=== PATIENT | male | born 1955 | race African-American/Black ===

== ENCOUNTER 2016-06-18 20:02 | Inpatient (IN) | payer OTHER, MEDICARE ==
[~2016-06-18] VITALS: Ht 182.9 cm; Wt 97.1 kg
[~2016-06-18 20:02] MED LIST: METF500 PO; PRIN5TAB PO; ROBA750T3 PO
[2016-06-18 20:15] VITALS: BP 148/83; PULSE 110; RESP 18; TEMP 98.1; O2SAT 96
[2016-06-18 20:52] VITALS: O2SAT 96
[2016-06-18 20:53] VITALS: BP 120/79; PULSE 98; RESP 20; TEMP 98.2; O2SAT 96
[2016-06-18] MEDS ORDERED: MORPHINE SULFATE 4 MG/ML INJ IV PUSH ONE ×2 (21:00→23:30)
[2016-06-18] MEDS ORDERED: LORazepam 2 MG/ML VIAL IV PUSH ONE (21:00)
[2016-06-18] MEDS ORDERED: ASPIRIN 81 MG CHEW TAB PO ONE (21:00)
[2016-06-18] MEDS ORDERED: SODIUM CHLORIDE 0.9% FLUSH 5 ML FLUSH IVF PRN (21:00)
[2016-06-18] MEDS ORDERED: SODIUM CHLORID 0.9% 500 ML INJ 500 ML IV ONE (21:00)
--- NOTE | 2016-06-18 21:05 | PD ---
HPI Chief Complaint: Chest Pain Time Seen by Provider: 20:52 Travel History International Travel<30 days: No Contact w/Intl Traveler<30days: No Traveled to known affect area: No History of Present Illness HPI 61-year-old male came to the emergency room with history of chest pain and shortness of breath starting today. Patient has been abusing cocaine 2-3 times a week for past couple months. He also uses alcohol with it. Patient is a and says he has history of PTSD. He was tachycardic in the emergency room triage with his heart rate in 100s. He complains of chest pain 5 to 6 out of 10 substernal and dull in nature. No history of nausea, diaphoresis or shortness of breath. Patient has history of stent 2 years ago. He is currently a smoker as well. [facility] Past Medical History Narrative Medical List of his past medical history as reviewed from the nursing note. Anemia: Yes Cirrhosis: No Cerebrovascular Accident: No Coronary Artery Disease: Yes Diabetes: Yes Patient Takes Glucophage: Yes Diminished Hearing: No Hepatitis: Yes (C) Hypertension: Yes Myocardial Infarction: No Seizures: No Ulcer: No ?: Not Past Surgical History Cholecystectomy: Yes Coronary Stent: Yes (x2) Social History Alcohol Use: Yes (RARELY) Tobacco Use: Yes (5 CIGS/DAY) Substance Use: Yes (CRACK COCAINE) Allergies-Medications (Allergen,Severity, Reaction): Coded Allergies: No Known Allergies (Unverified , 01/02/15) Comments No known drug allergies. Reported Meds & Prescriptions Reported Meds & Active Scripts Active Narrative Medication List of his home medications reviewed from the nursing note. Review of Systems Except as stated in HPI: all other systems reviewed are Neg Physical Exam Narrative GENERAL: Awake, alert, moderate distress SKIN: Warm and dry. HEAD: Atraumatic. Normocephalic. EYES: Pupils equal and round. No scleral icterus. No injection or drainage. Arcus senilis ENT: No nasal bleeding or discharge. Mucous membranes pink and moist. NECK: Trachea midline. No JVD. CARDIOVASCULAR: Regular rate and rhythm. Tachycardia. No murmur appreciated. RESPIRATORY: No accessory muscle use. Clear to auscultation. Breath sounds equal bilaterally. GASTROINTESTINAL: Abdomen soft, non-tender, nondistended. Hepatic and splenic margins not palpable. MUSCULOSKELETAL: No obvious deformities. No clubbing. No cyanosis. No edema. NEUROLOGICAL: Awake and alert. No obvious cranial nerve deficits. Motor grossly within normal limits. Normal speech. PSYCHIATRIC: Appropriate mood and affect; insight and judgment normal. Data Data Last Documented VS Vital Signs Date Time Temp Pulse Resp B/P Pulse Ox O2 Delivery O2 Flow Rate FiO2 06/18/16 23:00 83 20 151/83 99 Room Air 06/18/16 20:53 98.2 Orders Electrocardiogram (06/18/16 20:46) Basic Metabolic Panel (Bmp) (06/18/16 20:46) Ckmb (Isoenzyme) Profile (06/18/16 20:46) Complete Blood Count With Diff (06/18/16 20:46) Magnesium (Mg) (06/18/16 20:46) Prothrombin Time / Inr (Pt) (06/18/16 20:46) Act Partial Throm Time (Ptt) (06/18/16 20:46) Troponin I (06/18/16 20:46) Chest, Single Ap (06/18/16 20:46) Ecg Monitoring (06/18/16 20:46) Bilateral Bp Monitoring (06/18/16 20:46) Iv Access Insert/Monitor (06/18/16 20:46) Oximetry (06/18/16 20:46) Oxygen Administration (06/18/16 20:46) Aspirin Chew (Aspirin Chew) (06/18/16 21:00) Morphine Inj (Morphine Inj) (06/18/16 21:00) Sodium Chlorid 0.9% 500 Ml Inj (Ns 500 M (06/18/16 21:00) Lorazepam Inj (Ativan Inj) (06/18/16 21:00) CKMB (06/18/16 22:05) CKMB% (06/18/16 22:05) Heparin Infusion LEXIE.Q1H (06/18/16 23:26) Heparin Inj (Heparin Inj) (06/18/16 23:30) Heparin-D5w Inj (Heparin-D5w Inj) (06/18/16 23:30) Cbc No Diff, Includes Plts (06/21/16 06:00) Act Partial Throm Time (Ptt) (06/19/16 06:26) Occult Blood (Hemoccult) Stool (06/18/16 23:26) Morphine Inj (Morphine Inj) (06/18/16 23:30) Place In Observation (06/18/16 ) Vital Signs (Adult) Q4H (06/18/16 23:44) Activity Oob With Assistance (06/18/16 23:44) ^ [employer] / Telemetry .CONTINUOUS (06/18/16 23:44) Sodium Chloride 0.9% Flush (Ns Flush) (06/18/16 23:45) Sodium Chloride 0.9% Flush (Ns Flush) (06/19/16 09:00) Complete Blood Count With Diff (06/19/16 06:00) Creatine Kinase (Cpk) (06/19/16 04:00) Creatine Kinase (Cpk) (06/19/16 10:00) Troponin I (06/19/16 04:00) Troponin I (06/19/16 10:00) Electrocardiogram (06/19/16 04:00) Electrocardiogram (06/19/16 10:00) Naloxone Inj (Narcan Inj) (06/18/16 23:45) Admit Order (Ed Use Only) (06/18/16 23:45) Enoxaparin Inj (Lovenox Inj) (06/19/16 00:00) Basic Metabolic Panel (Bmp) (06/19/16 04:00) CKMB (06/19/16 04:20) CKMB% (06/19/16 04:20) Labs Laboratory Tests Test 06/18/16 22:05 White Blood Count 9.2 TH/MM3 Red Blood Count 4.87 MIL/MM3 Hemoglobin 14.2 GM/DL Hematocrit 42.4 % Mean Corpuscular Volume 87.1 FL Mean Corpuscular Hemoglobin 29.1 PG Mean Corpuscular Hemoglobin 33.4 % Concent Red Cell Distribution Width 13.6 % Platelet Count 288 TH/MM3 Mean Platelet Volume 8.3 FL Neutrophils (%) (Auto) 76.3 % Lymphocytes (%) (Auto) 18.2 % Monocytes (%) (Auto) 4.5 % Eosinophils (%) (Auto) 0.2 % Basophils (%) (Auto) 0.8 % Neutrophils # (Auto) 7.0 TH/MM3 Lymphocytes # (Auto) 1.7 TH/MM3 Monocytes # (Auto) 0.4 TH/MM3 Eosinophils # (Auto) 0.0 TH/MM3 Basophils # (Auto) 0.1 TH/MM3 CBC Comment DIFF FINAL Differential Comment Prothrombin Time 11.4 SEC Prothromb Time International 1.0 RATIO Ratio Activated Partial 25.1 SEC Thromboplast Time Sodium Level 142 MEQ/L Potassium Level 3.6 MEQ/L Chloride Level 105 MEQ/L Carbon Dioxide Level 18.8 MEQ/L Anion Gap 18 MEQ/L Blood Urea Nitrogen 14 MG/DL Creatinine 1.37 MG/DL Estimat Glomerular Filtration 64 ML/MIN Rate Random Glucose 135 MG/DL Calcium Level 9.5 MG/DL Magnesium Level 1.4 MG/DL Total Creatine Kinase 443 U/L Creatine Kinase MB 7.3 NG/ML Creatine Kinase MB % 1.6 % Troponin I 0.08 NG/ML MDM Medical Decision Making Medical Screen Exam Complete: Yes Emergency Medical Condition: Yes Medical Record Reviewed: Yes Interpretation(s) Twelve-lead EKG was reviewed by me. Normal sinus rhythm, left axis deviation, tachycardia, PVCs, nonspecific ST-T wave changes. Heart rate of 102 bpm. Differential Diagnosis ACS, non-STEMI couple, cocaine induced chest pain, nonspecific chest pain Narrative Course 9:05 PM awaiting for the blood test result. Patient has been given IV Ativan, morphine and 2 baby aspirin's. He will require to be admitted at least for observation if all the test results are within normal limit given his significantly high risk factors. 11:25 PM the test results of back and patient's troponin is elevated. He will be admitted to the hospitalist to be seen by clin asst tomorrow. Patient has been informed of this plan. Critical Care Narrative Aggregate critical care time was 30 minutes. Time to perform other separately billable procedures was not included in the critical care time. My time did not include minutes spent treating any other patients simultaneously or on activities that did not directly contribute to the patient's treatment. The services I provided to this patient were to treat and/or prevent clinically significant deterioration that could result in: Non-STEMI, heparin bolus and drip I provided critical care services requiring my management, as noted below: Chart data review, documentation time, medication orders and management, vital sign assessments/reviewing monitor data, ordering and reviewing lab tests, ordering and interpreting/reviewing x-rays and diagnostic studies, care of the patient and discussion of the patient with the admitting physicians. Procedures EKG Prior to Arrival: Yes Diagnosis Primary Impression: Non-STEMI (non-ST elevated myocardial infarction) Additional Impression: Cocaine abuse Admitting Information Admitting Physician Requests: Admit Scripts [Aspirin] (Aspirin Chew)81 MG CHEW No Conflict Check81 Mg PO DAILY #30 TAB.CHEW Prov:Judit Simmons MD 06/20/16 Ashly Jones MD Jun 18, 2016 21:05
--- NOTE | 2016-06-18 21:38 | RADRPT ---
EXAM DATE/TIME: 06/18/2016 20:58 [facility] COMPARISON: No previous studies available for comparison. INDICATIONS : Chest pain. MEDICAL HISTORY : None. SURGICAL HISTORY : Cardiac stent. ENCOUNTER: Initial ACUITY: 1 day PAIN SCORE: 5/10 LOCATION: Bilateral chest FINDINGS: A single view of the chest demonstrates the lungs to be symmetrically aerated without evidence of mas s, infiltrate or effusion. The cardiomediastinal contours are unremarkable. Osseous structures are intact. CONCLUSION: No acute disease. Kings Garcia MD on June 18, 2016 at 21:36 Board Certified Radiologist. This report was verified electronically.
[2016-06-18 22:00] VITALS: BP 150/87; PULSE 88; RESP 20; O2SAT 97
[2016-06-18 22:43] LABS: BASOPHIL # 0.1 TH/MM3 (0-0.2); BASOPHIL % 0.8 % (0.0-2.0); EOSINOPHIL % 0.2 % (0.0-4.0); HEMATOCRIT 42.4 % (39.0-51.0); HEMO FLAGS DIFF FINAL; LYMPH % 18.2 % (9.0-44.0); LYMPHOCYTE # 1.7 TH/MM3 (1.0-4.8); MEAN CELL VOLUME 87.1 FL (80.0-100.0); MEAN CORPUSCULAR HEMOGLOBIN 29.1 PG (27.0-34.0); MEAN CORPUSCULAR HGB CONC 33.4 % (32.0-36.0); MONO % 4.5 % (0.0-8.0); NEUT % 76.3 % (16.0-70.0); PLATELET COUNT 288 TH/MM3 (150-450); RED BLOOD COUNT 4.87 MIL/MM3 (4.50-5.90); RED CELL DISTRIBUTION WIDTH 13.6 % (11.6-17.2); WHITE BLOOD COUNT 9.2 TH/MM3 (4.0-11.0)
[2016-06-18 22:52] LABS: APTT (PATIENT) 25.1 SEC (24.3-30.1); PROTHROMBIN TIME - PATIENT 11.4 SEC (9.8-11.6)
[2016-06-18 23:00] VITALS: BP 151/83; PULSE 83; RESP 20; O2SAT 99
[2016-06-18 23:12] LABS: BICARBONATE 18.8 MEQ/L (21.0-32.0); MAGNESIUM 1.4 MG/DL (1.5-2.5); POTASSIUM 3.6 MEQ/L (3.5-5.1)
[2016-06-18 23:13] LABS: CKMB 7.3 NG/ML (0.5-3.6)
[2016-06-18] MEDS ORDERED: HEPARIN-D5W INJ 250 ML IV SCH (23:30)
[2016-06-18] MEDS ORDERED: HEPARIN SODIUM - IV 10,000 UNITS/10 ML VIAL IV ONE (23:30)
[2016-06-18] MEDS ORDERED: SODIUM CHLORIDE 0.9% FLUSH 5 ML FLUSH FLUSH PRN (23:45)
[2016-06-18] MEDS ORDERED: NALOXONE HCL 0.4 MG/ML AMP IV PRN (23:45)
[2016-06-19] VITALS (13 sets, daily range): BP systolic 116–154; BP diastolic 66–91; PULSE 62–104; RESP 15–20; TEMP 97.9–98.6; O2SAT 96–100
[2016-06-19] MEDS ORDERED: ENOXAPARIN SODIUM 100 MG/ML SYRINGE SQ ONE
[2016-06-19 05:19] LABS: BICARBONATE 23.8 MEQ/L (21.0-32.0); POTASSIUM 3.7 MEQ/L (3.5-5.1)
[2016-06-19 05:31] LABS: AUTOMATED NEUTROPHIL # 5.5 TH/MM3 (1.8-7.7); BASOPHIL % 0.4 % (0.0-2.0); EOSINOPHIL # 0.2 TH/MM3 (0-0.4); EOSINOPHIL % 2.5 % (0.0-4.0); HEMATOCRIT 41.4 % (39.0-51.0); HEMO FLAGS DIFF FINAL; LYMPH % 32.3 % (9.0-44.0); MEAN CELL VOLUME 84.6 FL (80.0-100.0); MEAN CORPUSCULAR HEMOGLOBIN 28.3 PG (27.0-34.0); MEAN CORPUSCULAR HGB CONC 33.4 % (32.0-36.0); MONO % 7.1 % (0.0-8.0); NEUT % 57.7 % (16.0-70.0); PLATELET COUNT 271 TH/MM3 (150-450); RED BLOOD COUNT 4.89 MIL/MM3 (4.50-5.90); RED CELL DISTRIBUTION WIDTH 13.8 % (11.6-17.2); WHITE BLOOD COUNT 9.4 TH/MM3 (4.0-11.0)
[2016-06-19 05:39] LABS: CKMB 6.8 NG/ML (0.5-3.6)
[2016-06-19] MEDS: MAGNESIUM SULFATE 1 GM PREMIX 100 ML IV SCH ×2 (05:39→07:29)
[2016-06-19 05:41] LABS: APTT (PATIENT) 29.9 SEC (24.3-30.1)
[2016-06-19] MEDS: SODIUM CHLORIDE 0.9% FLUSH 5 ML FLUSH FLUSH SCH ×2 (09:26→21:09)
[2016-06-19] MEDS ORDERED: LORazepam 2 MG/ML VIAL IV PUSH PRN ×4 (10:30)
[2016-06-19] MEDS ORDERED: LORazepam 1 MG TAB PO PRN (10:30)
[2016-06-19] MEDS ORDERED: FLUMAZENIL 1 MG/10 ML VIAL IV PUSH PRN (10:30)
[2016-06-19] MEDS ORDERED: ASPIRIN 325 MG TAB PO SCH (10:30)
[2016-06-19] MEDS ORDERED: LORazepam 2 MG TAB PO PRN (10:30)
[2016-06-19] MEDS: FOLIC ACID 1 MG TAB PO SCH (11:03)
[2016-06-19] MEDS: THIAMINE HCL 100 MG TAB PO SCH (11:03)
[2016-06-19] MEDS: MORPHINE SULFATE 4 MG/ML INJ IV PUSH PRN ×3 (11:04→23:17)
--- NOTE | 2016-06-19 11:06 | EKG ---
Date Performed: 06/19/2016 Time Performed: 04:37:48 PTAGE: 61 years EKG: Sinus rhythm WITH SINUS ARRHYTHMIA POSSIBLE LEFT ATRIAL ENLARGEMENT INFERIOR MYOCARDIAL INFARCTION MODERATE T-WAV E ABNORMALITY, CONSIDER ANTEROLATERAL ISCHEMIA ABNORMAL ECG PREVIOUS TRACING : 06/18/2016 20.32 DOCTOR: Sarwat Larry Interpretating Date/Time 06/19/2016 11:06:18
[2016-06-19 11:17] LABS: HEMATOCRIT 41.6 % (39.0-51.0); MEAN CELL VOLUME 84.9 FL (80.0-100.0); MEAN CORPUSCULAR HEMOGLOBIN 28.6 PG (27.0-34.0); MEAN CORPUSCULAR HGB CONC 33.7 % (32.0-36.0); PLATELET COUNT 295 TH/MM3 (150-450); RED CELL DISTRIBUTION WIDTH 13.8 % (11.6-17.2); REVIEW FLAG FINAL; WHITE BLOOD COUNT 8.4 TH/MM3 (4.0-11.0)
[2016-06-19 11:25] LABS: APTT (PATIENT) 26.8 SEC (24.3-30.1); PROTHROMBIN TIME - PATIENT 10.8 SEC (9.8-11.6)
[2016-06-19] MEDS: HEPARIN-D5W INJ 250 ML IV SCH (12:18)
--- NOTE | 2016-06-19 12:22 | EKG ---
Date Performed: 06/19/2016 Time Performed: 10:14:19 PTAGE: 61 years EKG: Sinus rhythm WITH SINUS ARRHYTHMIA POSSIBLE LEFT ATRIAL ENLARGEMENT INFERIOR MYOCARDIAL INFARCTION MODERATE T-WAV E ABNORMALITY, CONSIDER LATERAL ISCHEMIA ABNORMAL ECG PREVIOUS TRACING : 06/19/2016 04.37 DOCTOR: Sarwat Larry Interpretating Date/Time 06/19/2016 12:20:13
[2016-06-19] MEDS ORDERED: CLOPIDOGREL 300 MG TAB PO ONE (13:00)
--- NOTE | 2016-06-19 13:15 | HHI.HP ---
[facility] Service [place] [facility] Primary Care Physician Non-Staff Admission Diagnosis chest pain, elevated troponin Diagnoses: Chief Complaint: Chest pain Travel History International Travel<30 Days: No Contact w/Intl Traveler <30 Da: No Traveled to Known Affected Are: No History of Present Illness 61 years old male with history of coronary artery disease and heart stenting, hypertension, hyperlipidemia, diabetes mellitus, came to ED complaining of chest pain 6-7 out of 10, along with sweating, short of breath, lightheadedness, patient denied nausea or vomiting, transfer the pain, he did not try nitroglycerin, no transfer or alleviating or exacerbating factor. Patient admitted doing cocaine yesterday. He stated he drinks alcohol daily at least a beer. And he smoked 5 cigarettes a day. Patient denied any abdominal pain, diarrhea or constipation, orthopnea or PND or leg swelling, dysuria urgency or frequency, headache or blurred vision Review of Systems Other All 10 systems reviewed and was positive for what is mentioned in history of present illness otherwise negative Past Family Social History Past Medical History Hyperlipidemia Diabetes mellitus Hypertension History of coronary artery disease status post stenting Hep C PTSD Past Surgical History Cardiac catheter, stenting Allergies: Coded Allergies: No Known Allergies (Unverified , 01/02/15) Family History Reviewed noncontributory Social History Patient smoke 5 cigarettes a day, he does drink alcohol he stated at least a beer a day, positive for cocaine abuse last time yesterday Physical Exam Vital Signs Vital Signs Date Time Temp Pulse Resp B/P Pulse Ox O2 Delivery O2 Flow Rate FiO2 06/19/16 12:21 75 20 154/83 98 Room Air 06/19/16 11:09 20 06/19/16 10:00 70 20 140/91 98 Room Air 06/19/16 07:08 81 20 140/76 98 Room Air 06/19/16 04:00 75 20 143/66 97 Room Air 06/19/16 03:00 104 20 129/79 97 Room Air 06/19/16 02:00 76 20 137/71 97 Room Air 06/19/16 01:00 86 20 139/81 100 Room Air 06/19/16 00:00 78 20 147/88 96 Room Air 06/18/16 23:00 83 20 151/83 99 Room Air 06/18/16 22:00 88 20 150/87 97 Room Air 06/18/16 21:08 18 06/18/16 20:53 Room Air 06/18/16 20:53 98.2 98 20 120/79 96 Room Air 06/18/16 20:52 96 Room Air 06/18/16 20:15 98.1 110 18 148/83 96 Physical Exam GENERAL: This is a well-nourished, well-developed patient, in no apparent distress. SKIN: No rashes, warm and dry HEAD: Atraumatic. Normocephalic. EYES: Pupils equal round and reactive. Extraocular motions intact. No scleral icterus. ENT: Nose without bleeding, or drainage, Airway patent. NECK: Trachea midline. Supple CARDIOVASCULAR: Regular rate and rhythm without murmurs, gallops, or rubs. RESPIRATORY: Fair air entry bilaterally. No wheezes, rales, or rhonchi. GASTROINTESTINAL: Abdomen soft, non-tender, nondistended. Positive bowel sounds MUSCULOSKELETAL: Extremities without clubbing, cyanosis, or edema. Pedal pulses appreciated NEUROLOGICAL: Awake and alert. Moves all extremity. Normal speech.no focal neurological deficit Laboratory Laboratory Tests Test 06/18/16 06/19/16 06/19/16 06/19/16 22:05 04:20 05:09 10:05 White Blood Count 9.2 9.4 Red Blood Count 4.87 4.89 Hemoglobin 14.2 13.8 Hematocrit 42.4 41.4 Mean Corpuscular Volume 87.1 84.6 Mean Corpuscular Hemoglobin 29.1 28.3 Mean Corpuscular Hemoglobin 33.4 33.4 Concent Red Cell Distribution Width 13.6 13.8 Platelet Count 288 271 Mean Platelet Volume 8.3 7.4 Neutrophils (%) (Auto) 76.3 57.7 Lymphocytes (%) (Auto) 18.2 32.3 Monocytes (%) (Auto) 4.5 7.1 Eosinophils (%) (Auto) 0.2 2.5 Basophils (%) (Auto) 0.8 0.4 Neutrophils # (Auto) 7.0 5.5 Lymphocytes # (Auto) 1.7 3.0 Monocytes # (Auto) 0.4 0.7 Eosinophils # (Auto) 0.0 0.2 Basophils # (Auto) 0.1 0.0 CBC Comment DIFF FINAL DIFF FINAL Differential Comment Prothrombin Time 11.4 Prothromb Time International 1.0 Ratio Activated Partial 25.1 29.9 Thromboplast Time Sodium Level 142 144 Potassium Level 3.6 3.7 Chloride Level 105 109 Carbon Dioxide Level 18.8 23.8 Anion Gap 18 11 Blood Urea Nitrogen 14 14 Creatinine 1.37 1.20 Estimat Glomerular Filtration 64 74 Rate Random Glucose 135 83 Calcium Level 9.5 8.8 Magnesium Level 1.4 Total Creatine Kinase 443 355 293 Creatine Kinase MB 7.3 6.8 Creatine Kinase MB % 1.6 1.9 Troponin I 0.08 0.26 0.34 Test 06/19/16 11:10 White Blood Count 8.4 Red Blood Count 4.90 Hemoglobin 14.0 Hematocrit 41.6 Mean Corpuscular Volume 84.9 Mean Corpuscular Hemoglobin 28.6 Mean Corpuscular Hemoglobin 33.7 Concent Red Cell Distribution Width 13.8 Platelet Count 295 Mean Platelet Volume 7.4 Prothrombin Time 10.8 Prothromb Time International 1.0 Ratio Activated Partial 26.8 Thromboplast Time Result Diagram: 06/19/16 1110 06/19/16 0420 Imaging Last Impressions Chest X-Ray 06/18/162045 Signed Impressions: Service Date/Time: Saturday, June 18, 2016 20:58 - CONCLUSION: No acute disease. Kings Garcia MD EKG personally reviewed by me showed sinus rhythm with old inferior infarct, questionable lateral infarct with inverted T-wave in lead I, aVL V5 V6 Assessment and Plan Assessment and Plan 61 years old male came with history of chest pain Non-STEMI, chest pain with increased troponin mostly precipitated I cocaine abuse Increased CK and troponin CAROL with increased creatinine Metabolic acidosis mostly due to CAROL History of coronary artery disease with stenting in the past Substance abuse cocaine patient counseled Tobacco abuse Questionable alcohol abuse Hypertension Hyperlipidemia Diabetes mellitus History of hep C History of PTSD DVT prophylaxis patient will be on heparin drip Plan: Patient evidence for observation to monitor cardiac enzymes which increased Healthy heart diabetic diet Started on aspirin, oxygen, morphine, heparin drip Consult cardiology, I personally called Dr. Honeycutt on discussed with him, decision for heart catheter when they see the patient EKG reviewed by me as above Hold lisinopril due to CAROL Will avoid beta marcel due to recent cocaine use Patient extensively counseled about tobacco 1 cocaine abstinence Accu-Chek, ISS, hold metformin, diabetic education, check A1c. CIWA protocol Discussed Condition With Patient, cardiology Dr. Honeycutt Physician Certification 2 Midnight Certification Type: Admission for Inpatient Services Order for Inpatient Services The services are ordered in accordance with Medicare regulations or non- Medicare payer requirements, as applicable. In the case of services not specified as inpatient-only, they are appropriately provided as inpatient services in accordance with the 2-midnight benchmark. Estimated LOS (days): 2 days is the estimated time the patient will need to remain in the hospital, assuming treatment plan goals are met and no additional complications. Post-Hospital Plan: Not yet determined Judit Simmons MD Jun 19, 2016 13:15
--- NOTE | 2016-06-19 13:33 | MB ---
cc: DALI WINTER M.D. DATE OF CONSULTATION: 06/19/2016 REASON FOR CONSULTATION Evaluation of chest pain and elevated troponin. HISTORY OF PRESENT ILLNESS Reynaldo Ventura is a 61-year-old -[place] man admitted with a non-STEMI. The patient has a longstanding history of cocaine abuse. He uses it about 2-3 times a week. He had a previous infarct 2 years ago. He does not remember if he was hospitalized in [place] or more likely it was in [place]. He apparently had a stent at that time. He also smokes. He has hypertension and diabetes. Yesterday he used crack cocaine and about an hour later developed substernal chest pressure lasting a couple of hours. He has had a little bit of pain also today. He has been receiving intermittent morphine which he says is the only thing that relieves his anxiety. He claims to have severe anxiety from post-traumatic stress disorder. He is collecting Social Security apparently for this. He did not have chest pain before last night. PAST MEDICAL HISTORY 1. Hypertension. 2. Diabetes. 3. Previously treated and cured hepatitis C according to him. 4. Previous cholecystectomy. 5. Sleep apnea with previous uvulopalatopharyngoplasty, but without success and refuses to use CPAP because he cannot tolerate it. SOCIAL HISTORY He lives alone. He served in the [employer] in [place]. He is single. He lived in [place] about a year and a half ago then moved to [place]. Prior to that he lived in [place]. He says he has been in drug rehab too many times to count. PHYSICAL EXAMINATION GENERAL: A robust-appearing -[place]e male, mildly anxious, in no acute distress. VITAL SIGNS: Charted. HEENT: Exam unremarkable. NECK: No JVD. No bruits. CHEST: Clear to auscultation. CARDIAC: S1, S2, S4, regular rate and rhythm. ABDOMEN: Soft. EXTREMITIES: No clubbing, cyanosis or edema. Pulses are intact. EKG DATA EKG shows sinus rhythm. There is evidence for an old inferior infarct. There are anterior and anterolateral ST-T wave abnormalities consistent with a subendocardial infarct. LABORATORY DATA Lab work shows elevation of his troponin at 0.08, 0.25 and then 0.34. Creatinine has gone from 1.37 down to 1.2. Potassium is 3.7. Hematocrit is normal. IMAGING DATA Chest x-ray is unremarkable. IMPRESSION Acute acx-AE-hgktocx elevation myocardial infarction, occurring one hour after crack cocaine use. Longstanding polysubstance abuse. RECOMMENDATIONS I do not think he is a good candidate for cardiac cath because I do not think we could trust him to take dual-antiplatelet therapy properly or to stop using drugs. Currently the drug abuse is longstanding. I am going to try to treat him medically and am going to add nitrates and diltiazem. Will try to avoid a beta marcel in view of his cocaine habit. Will try to hopefully stabilize him with medication. I will add clopidogrel, continue aspirin and add statin therapy. The patient was counseled to quit smoking and quit using cocaine, but I do not have any confidence that he will. A 2-D echo Doppler is ordered. Further therapy to be determined. MD ADRIAN Ayers/NOEL /1:02 PM /1:12 PM
[2016-06-19] MEDS: DILTIAZEM HCL 60 MG TAB PO SCH ×3 (13:48→21:09)
[2016-06-19] MEDS: NITROGLYCERIN 2% OINT 1 GM PACKET TOPICAL SCH ×3 (13:49→23:17)
[2016-06-19] MEDS ORDERED: LISI-519 PO (15:02)
[2016-06-19] MEDS ORDERED: METH750T PO (15:05)
[2016-06-19] MEDS ORDERED: METF500T PO (15:05)
[2016-06-20] VITALS (7 sets, daily range): BP systolic 120–146; BP diastolic 72–82; PULSE 58–67; RESP 16–18; TEMP 97.4–98.4; O2SAT 97–98
[2016-06-20 01:37] LABS: APTT (PATIENT) 43.5 SEC (24.3-30.1)
[2016-06-20] MEDS: MORPHINE SULFATE 4 MG/ML INJ IV PUSH PRN ×5 (03:33→23:15)
[2016-06-20] MEDS: NITROGLYCERIN 2% OINT 1 GM PACKET TOPICAL SCH ×4 (06:42→23:15)
[2016-06-20] MEDS: ATORVASTATIN 40 MG TAB PO SCH (08:05)
[2016-06-20] MEDS: DILTIAZEM HCL 60 MG TAB PO SCH ×4 (08:05→19:56)
[2016-06-20] MEDS: ASPIRIN 81 MG CHEW TAB PO SCH (08:06)
[2016-06-20] MEDS: FOLIC ACID 1 MG TAB PO SCH (08:06)
[2016-06-20] MEDS: SODIUM CHLORIDE 0.9% FLUSH 5 ML FLUSH FLUSH SCH ×2 (08:06→19:56)
[2016-06-20] MEDS: THIAMINE HCL 100 MG TAB PO SCH (08:06)
[2016-06-20] MEDS: CLOPIDOGREL 75 MG TAB PO SCH (08:06)
[2016-06-20] MEDS ORDERED: GLUCAGON 1 MG/ML VIAL OTHER PRN (08:15)
[2016-06-20] MEDS ORDERED: DEXTROSE 50% IN WATER 50 ML VIAL(D50) IV PUSH PRN (08:15)
[2016-06-20 08:39] LABS: HEMATOCRIT 38.2 % (39.0-51.0); MEAN CELL VOLUME 84.9 FL (80.0-100.0); MEAN CORPUSCULAR HGB CONC 32.9 % (32.0-36.0); PLATELET COUNT 247 TH/MM3 (150-450); RED CELL DISTRIBUTION WIDTH 13.9 % (11.6-17.2); REVIEW FLAG FINAL
[2016-06-20] MEDS: LISINOPRIL 5 MG TAB PO SCH (08:43)
[2016-06-20] MEDS ORDERED: PILL SPLITTER OTHER PRN (08:45)
[2016-06-20] MEDS: HEPARIN-D5W INJ 250 ML IV SCH (08:50)
[2016-06-20 08:53] LABS: APTT (PATIENT) 44.8 SEC (24.3-30.1)
--- NOTE | 2016-06-20 09:11 | PD.CARD.PN ---
Subjective Subjective Remarks no angina, no complaints Objective Medications Current Medications Medications (Trade) Dose Ordered Sig/Uriah Route Start Time Stop Time Status Last Admin (NS Flush) 2 ml UNSCH PRN FLUSH 06/18/16 23:45 (NS Flush) 2 ml BID FLUSH 06/19/16 09:00 06/20/16 08:06 Naloxone HCl 0.4 mg 0.4 mg UNSCH PRN IV 06/18/16 23:45 (Heparin-D5W Inj) 250 ml @ 0 mls/hr TITRATE IV 06/19/16 11:30 06/20/16 08:50 (Morphine Inj) 3 mg Q3H PRN IV PUSH 06/19/16 10:30 06/20/16 06:41 (Romazicon Inj) 0.2 mg UNSCH PRN IV PUSH 06/19/16 10:30 06/23/16 10:31 (Ativan) 1 mg Q4H PRN PO 06/19/16 10:30 06/19/16 11:04 (Ativan Inj) 1 mg Q4H PRN IV PUSH 06/19/16 10:30 (Ativan) 2 mg Q2H PRN PO 06/19/16 10:30 (Ativan Inj) 2 mg Q2H PRN IV PUSH 06/19/16 10:30 (Ativan Inj) 2 mg Q1H PRN IV PUSH 06/19/16 10:30 (Ativan Inj) 2 mg Q15M PRN IV PUSH 06/19/16 10:30 (Folate) 1 mg DAILY PO 06/19/16 10:30 06/24/16 10:29 06/20/16 08:06 (Vitamin B1) 100 mg DAILY PO 06/19/16 10:30 06/20/16 08:06 (Aspirin Chew) 81 mg DAILY PO 06/20/16 09:00 06/20/16 08:06 (Nitroglycerin 2% Oint) 1 inch Q6HR TOPICAL 06/19/16 13:00 06/20/16 06:42 (Cardizem) 60 mg QID PO 06/19/16 13:00 06/20/16 08:05 (Plavix) 75 mg DAILY PO 06/20/16 09:00 06/20/16 08:06 (Lipitor) 40 mg DAILY PO 06/20/16 09:00 06/20/16 08:05 (D50w (Vial) Inj) 25 ml UNSCH PRN IV PUSH 06/20/16 08:15 (Glucagon Inj) 1 mg UNSCH PRN OTHER 06/20/16 08:15 (Prinivil) 2.5 mg DAILY PO 06/20/16 09:00 06/20/16 08:43 (Pill Splitter) 1 ea UNSCH PRN OTHER 06/20/16 08:45 Vital Signs / I&O Vital Signs Date Time Temp Pulse Resp B/P Pulse Ox O2 Delivery O2 Flow Rate FiO2 06/20/16 08:00 97.7 62 18 120/77 97 06/20/16 04:00 98.2 67 16 125/74 97 06/20/16 00:00 98.2 64 18 135/77 97 06/19/16 20:15 71 06/19/16 20:15 Room Air 06/19/16 20:00 98.6 69 18 116/79 97 06/19/16 18:46 Room Air 06/19/16 14:23 97.9 71 18 126/72 100 06/19/16 13:47 76 15 143/88 96 Room Air 06/19/16 12:21 75 20 154/83 98 Room Air 06/19/16 11:09 20 06/19/16 10:00 70 20 140/91 98 Room Air I/O 06/19/16 06/19/16 06/19/16 06/20/16 06/20/16 06/20/16 06:59 14:59 22:59 06:59 14:59 22:59 Intake Total 318 ml 298 ml Output Total 400 ml 400 ml Balance -82 ml -102 ml Intake Oral 240 ml 240 ml IV Total 78 ml 58 ml Output Urine Total 400 ml 400 ml # Bowel Movements 0 0 Physical Exam GENERAL: Obese, well developed, well nourished. No acute distress. HEENT: Jugular venous pressure is normal. CHEST: Lungs clear to auscultation bilaterally. Unlabored respiratory effort. CARDIAC: Regular rate and rhythm ABDOMEN: Soft, nontender, Bowel sounds present. EXTREMITIES: No clubbing, cyanosis, or edema. Laboratory Laboratory Tests Test 06/19/16 06/19/16 06/19/16 06/20/16 10:05 11:10 19:00 01:18 Total Creatine Kinase 293 U/L Troponin I 0.34 NG/ML White Blood Count 8.4 TH/MM3 Red Blood Count 4.90 MIL/MM3 Hemoglobin 14.0 GM/DL Hematocrit 41.6 % Mean Corpuscular Volume 84.9 FL Mean Corpuscular Hemoglobin 28.6 PG Mean Corpuscular Hemoglobin 33.7 % Concent Red Cell Distribution Width 13.8 % Platelet Count 295 TH/MM3 Mean Platelet Volume 7.4 FL Prothrombin Time 10.8 SEC Prothromb Time International 1.0 RATIO Ratio Activated Partial 26.8 SEC 39.0 SEC 43.5 SEC Thromboplast Time Test 06/20/16 07:41 White Blood Count 7.0 TH/MM3 Red Blood Count 4.50 MIL/MM3 Hemoglobin 12.6 GM/DL Hematocrit 38.2 % Mean Corpuscular Volume 84.9 FL Mean Corpuscular Hemoglobin 28.0 PG Mean Corpuscular Hemoglobin 32.9 % Concent Red Cell Distribution Width 13.9 % Platelet Count 247 TH/MM3 Mean Platelet Volume 8.0 FL Activated Partial 44.8 SEC Thromboplast Time Assessment and Plan Problem List: (1) Cocaine abuse Assessment and Plan: Counseled cessation (2) Non-STEMI (non-ST elevated myocardial infarction) Assessment and Plan: Cont. diltiazem, change NTP to Imdur (3) PTSD (post-traumatic stress disorder) Rafael Urias MD Jun 20, 2016 09:11
[2016-06-20 09:17] LABS: ALKALINE PHOSPHATASE 38 U/L (45-117); ALT (GPT) 17 U/L (12-78); ANION GAP 8 MEQ/L (5-15); AST (GOT) 9 U/L (15-37); BICARBONATE 26.2 MEQ/L (21.0-32.0); BLOOD UREA NITROGEN 15 MG/DL (7-18); CHLORIDE 104 MEQ/L (98-107); GLOMERULAR FILTRATION RATE 69 ML/MIN (>89); POTASSIUM 3.8 MEQ/L (3.5-5.1); SODIUM (NA) 138 MEQ/L (136-145); TOTAL BILIRUBIN ADULT 0.2 MG/DL (0.2-1.0)
[2016-06-20] MEDS: INSULIN ASPART SUPPLEMENTAL SCALE SQ SCH ×3 (11:26→19:56)
--- NOTE | 2016-06-20 16:33 | HHI.PR ---
Subjective Remarks Comfortably laying in bed no chest pain or short of breath today He concerned about going home today he stated has nobody to take care of him he will need a ride, will have watch case polisher help with that Objective Vitals Vital Signs Date Time Temp Pulse Resp B/P Pulse Ox O2 Delivery O2 Flow Rate FiO2 06/20/16 12:00 97.4 67 18 146/80 97 06/20/16 08:00 97.7 62 18 120/77 97 06/20/16 07:52 58 06/20/16 07:45 Room Air 06/20/16 04:00 98.2 67 16 125/74 97 06/20/16 00:00 98.2 64 18 135/77 97 06/19/16 20:15 71 06/19/16 20:15 Room Air 06/19/16 20:00 98.6 69 18 116/79 97 06/19/16 18:46 Room Air I/O 06/19/16 06/19/16 06/19/16 06/20/16 06/20/16 06/20/16 07:00 15:00 23:00 07:00 15:00 23:00 Intake Total 318 ml 298 ml Output Total 400 ml 400 ml Balance -82 ml -102 ml Intake Oral 240 ml 240 ml IV Total 78 ml 58 ml Output Urine Total 400 ml 400 ml # Bowel Movements 0 0 Result Diagram: 06/20/1674006/20/1641 Objective Remarks GENERAL: This is a well-nourished, well-developed patient, in no apparent distress. SKIN: No rashes, warm and dry HEAD: Atraumatic. Normocephalic. EYES: Pupils equal round and reactive. Extraocular motions intact. No scleral icterus. ENT: Nose without bleeding, or drainage, Airway patent. NECK: Trachea midline. Supple CARDIOVASCULAR: Regular rate and rhythm without murmurs, gallops, or rubs. RESPIRATORY: Fair air entry bilaterally. No wheezes, rales, or rhonchi. GASTROINTESTINAL: Abdomen soft, non-tender, nondistended. Positive bowel sounds MUSCULOSKELETAL: Extremities without clubbing, cyanosis, or edema. Pedal pulses appreciated NEUROLOGICAL: Awake and alert. Moves all extremity. Normal speech.no focal neurological deficit A/P Assessment and Plan 61 years old male came with history of chest pain Non-STEMI, chest pain with increased troponin mostly precipitated I cocaine abuse Increased CK and troponin CAROL with increased creatinine>>resolved Metabolic acidosis mostly due to CAROL>> resolved History of coronary artery disease with stenting in the past Substance abuse cocaine patient counseled Tobacco abuse Questionable alcohol abuse Hypertension Hyperlipidemia Diabetes mellitus History of hep C History of PTSD DVT prophylaxis patient will be on heparin drip Plan: Healthy heart diabetic diet Started on aspirin, oxygen, morphine, heparin drip Appreciate Cardiology consultation, did not recommend heart catheter, recommended medical management with nitroglycerin, diltiazem, statin, lisinopril was on hold due to CAROL will resume at a lower dose since blood pressure is controlled now, no beta marcel due to cocaine recent use. We'll continue medical management, change nitroglycerin to Imdur Patient extensively counseled about tobacco 1 cocaine abstinence Accu-Chek, ISS, hold metformin, diabetic education, check A1c. CIWA protocol Discharge Planning When cleared by cardiology home possibly today or in a.m., patient needs a ride , case management to help Discharge patient to home Condition on discharge: Improved Healthy heart diabetic diet Ad Bibi activity Rx written: See med rec Follow-up with primary care physician, and cardiology as directed Judit Simmons MD Jun 20, 2016 16:33
--- NOTE | 2016-06-20 16:36 | EC ---
Study Study Date:06/20/2016 STUDY CONCLUSIONS SUMMARY - Left ventricle: The cavity size was normal. Wall thickness was normal. Systolic function was mildly to moderately reduced. The estimated ejection fraction was in the range of 40% to 45%. Hypokinesis of the inferoseptal myocardium. - Aortic valve: Valve area: 2.56cm^2 (Vmax). If LV function is below 40, please consider prescribing an ACEI or ARB or document rationale for non-use. PROCEDURE DATA STUDY STATUS: Elective. Procedure: Transthoracic echocardiography. Image quality was good. Scanning was performed from the parasternal, apical, and subcostal acoustic windows. Study completion: The patient tolerated the procedure well. Transthoracic echocardiography. M-mode, complete 2D, complete spectral Doppler, and color Doppler. Height: Height: 72in. Weight: Weight: 219.5lb. Body mass index: BMI: 29.8kg/m^2. Body surface area: BSA: 2.22m^2. Patient status: Inpatient. CARDIAC ANATOMY LEFT VENTRICLE: The cavity size was normal. Wall thickness was normal. Systolic function was mildly to moderately reduced. The estimated ejection fraction was in the range of 40% to 45%. Regional wall motion abnormalities: Hypokinesis of the inferoseptal myocardium. AORTIC VALVE: Trileaflet; normal thickness leaflets. Doppler: Transvalvular velocity was within the normal range. There was no stenosis. No regurgitation. Valve area: 2.56cm^2 (Vmax). Indexed valve area: 1.15cm^2/m^2 (Vmax). AORTA: Aortic root: The aortic root was normal in size. MITRAL VALVE: Structurally normal valve. Doppler: Transvalvular velocity was within the normal range. There was no evidence for stenosis. No regurgitation. Peak gradient: 5mm Hg (D). LEFT ATRIUM: The atrium was normal in size. RIGHT VENTRICLE: The cavity size was normal. Wall thickness was normal. PULMONIC VALVE: Doppler: Transvalvular velocity was within the normal range. There was no evidence for stenosis. No regurgitation. TRICUSPID VALVE: Structurally normal valve. Doppler: Transvalvular velocity was within the normal range. No regurgitation. PULMONARY ARTERY: The main pulmonary artery was normal-sized. Systolic pressure was within the normal range. RIGHT ATRIUM: The atrium was normal in size. PERICARDIUM: There was no pericardial effusion. SYSTEMIC VEINS: Inferior vena cava: The vessel was normal in size. Patient weight: 219.5lb _Ejection fraction:_ 65-75% _Fractional shortening:_ 32% up to 5Kg 5-11.5Kg 11.6-22.9Kg 23-45Kg 45-57Kg Aortic Root 7-13 <17 13-22 17-27 17-27 LA diam 6-13 <23 24-38 33-47 37-40 RVID 10-17 7-15 7-15 7-18 8-17 LVIDd 12-22 <32 24-38 33-47 37-40 LVPW 2-4 3-6 5-7 6-8 7-8 IVS 2-4 3-6 5-7 6-8 7-8 BASIC MEASUREMENTS ADULT NORMAL Left ventricle LV internal dimension, ED, chordal *58.2 mm 43-52 level, PLAX LV internal dimension, ES, chordal *47.2 mm 23-38 level, PLAX Fractional shortening, chordal level, *19 % >29 PLAX LV posterior wall thickness, ED 8 mm IVS/LVPW ratio, ED 1.18 <1.3 Ventricular septum Septal thickness, ED 9.45 mm Aortic valve Leaflet separation 22 mm 15-26 BASIC MEASUREMENTS ADULT NORMAL Aortic valve Leaflet separation 22 mm 15-26 Aorta Root diameter, ED 30 mm 20-37 Left atrium Anterior-posterior dimension, ES *42 mm 19-40 Anterior-posterior dimension index, ES 1.89 cm/m^2 <2.2 LA/aortic root ratio 1.4 DOPPLER MEASUREMENTS ADULT NORMAL Aortic valve Peak velocity, S 124 cm/s Valve area, Vmax 2.56 cm^2 Valve area index, Vmax 1.15 cm^2/m^2 Mitral valve Peak E-wave velocity 115 cm/s Peak A-wave velocity 73.5 cm/s Deceleration time 180 ms 150-230 Peak gradient, D 5 mm Hg Peak E/A ratio 1.6 Maximal regurgitant velocity 283 cm/s Pulmonic valve Peak velocity, S 103 cm/s LEGEND: Mean values are shown as u=mean value. Asterisk (*) tinsley values outside specified normal range. Prepared and signed by Edis Roach [id number]
[2016-06-20] MEDS ORDERED: LIPI40TA PO (17:12)
[2016-06-20] MEDS ORDERED: LISI-519 PO (17:12)
[2016-06-20] MEDS ORDERED: CARD240C6 PO (17:12)
[2016-06-20] MEDS ORDERED: PLAV75TA29 PO (17:12)
[2016-06-20] MEDS ORDERED: Aspirin Chew PO (17:12)
[2016-06-20] MEDS ORDERED: ISOS60TA PO (17:12)
[2016-06-21] VITALS: BP 132/83; PULSE 60; RESP 18; TEMP 98.3; O2SAT 96
[2016-06-21 04:00] VITALS: BP 132/71; PULSE 62; RESP 18; TEMP 98.2; O2SAT 95
[2016-06-21] MEDS: MORPHINE SULFATE 4 MG/ML INJ IV PUSH PRN (05:16)
[2016-06-21] MEDS: INSULIN ASPART SUPPLEMENTAL SCALE SQ SCH (05:26)
[2016-06-21 06:54] LABS: APTT (PATIENT) 39.5 SEC (24.3-30.1)
[2016-06-21 06:58] LABS: HEMATOCRIT 37.1 % (39.0-51.0); MEAN CELL VOLUME 85.2 FL (80.0-100.0); MEAN CORPUSCULAR HEMOGLOBIN 28.1 PG (27.0-34.0); PLATELET COUNT 248 TH/MM3 (150-450); RED BLOOD COUNT 4.36 MIL/MM3 (4.50-5.90); RED CELL DISTRIBUTION WIDTH 13.8 % (11.6-17.2); REVIEW FLAG FINAL; WHITE BLOOD COUNT 7.5 TH/MM3 (4.0-11.0)
[2016-06-21] MEDS ORDERED: ISOSORBIDE MONONITRATE 60 MG TAB PO SCH (07:00)
[2016-06-21 08:05] VITALS: BP 122/75; PULSE 71; RESP 18; TEMP 97.9; O2SAT 99
[2016-06-21] MEDS ORDERED: DILTIAZEM-CD 240 MG CAP ER PO SCH (09:00)
[2016-06-21] MEDS: LISINOPRIL 5 MG TAB PO SCH (09:38)
[2016-06-21] MEDS: THIAMINE HCL 100 MG TAB PO SCH (09:39)
[2016-06-21] MEDS: SODIUM CHLORIDE 0.9% FLUSH 5 ML FLUSH FLUSH SCH (09:39)
[2016-06-21] MEDS: CLOPIDOGREL 75 MG TAB PO SCH (09:39)
[2016-06-21] MEDS: FOLIC ACID 1 MG TAB PO SCH (09:39)
[2016-06-21] MEDS: ASPIRIN 81 MG CHEW TAB PO SCH (09:39)
[2016-06-21] MEDS: ATORVASTATIN 40 MG TAB PO SCH (09:41)
[2016-06-21 09:58] VITALS: PULSE 62
--- NOTE | 2016-06-21 11:53 | HHI.PR ---
Subjective Remarks doing well , no acute issues Objective Vitals Vital Signs Date Time Temp Pulse Resp B/P Pulse Ox O2 Delivery O2 Flow Rate FiO2 06/21/16 09:58 62 06/21/16 09:58 Room Air 06/21/16 08:05 97.9 71 18 122/75 99 06/21/16 04:00 98.2 62 18 132/71 95 06/21/16 00:00 98.3 60 18 132/83 96 06/20/16 20:00 62 06/20/16 20:00 98.3 64 18 128/72 97 06/20/16 19:45 Room Air 06/20/16 16:00 98.4 61 18 140/82 98 06/20/16 12:00 97.4 67 18 146/80 97 I/O 06/20/16 06/20/16 06/20/16 06/21/16 06/21/16 06/21/16 07:00 15:00 23:00 07:00 15:00 23:00 Intake Total 298 ml 600 ml 158 ml 240 ml Output Total 400 ml 600 ml 300 ml Balance -102 ml 0 ml 158 ml -60 ml Intake Oral 240 ml 600 ml 240 ml IV Total 58 ml 158 ml Output Urine Total 400 ml 600 ml 300 ml # Bowel Movements 0 0 Result Diagram: 06/21/16 0535 06/20/16 0741 Objective Remarks GENERAL: This is a well-nourished, well-developed patient, in no apparent distress. SKIN: No rashes, warm and dry HEAD: Atraumatic. Normocephalic. EYES: Pupils equal round and reactive. Extraocular motions intact. No scleral icterus. ENT: Nose without bleeding, or drainage, Airway patent. NECK: Trachea midline. Supple CARDIOVASCULAR: Regular rate and rhythm without murmurs, gallops, or rubs. RESPIRATORY: Fair air entry bilaterally. No wheezes, rales, or rhonchi. GASTROINTESTINAL: Abdomen soft, non-tender, nondistended. Positive bowel sounds MUSCULOSKELETAL: Extremities without clubbing, cyanosis, or edema. Pedal pulses appreciated NEUROLOGICAL: Awake and alert. Moves all extremity. Normal speech.no focal neurological deficit A/P Assessment and Plan 61 years old male came with history of chest pain Non-STEMI, chest pain with increased troponin mostly precipitated I cocaine abuse Increased CK and troponin CAROL with increased creatinine>>resolved Metabolic acidosis mostly due to CAROL>> resolved History of coronary artery disease with stenting in the past Substance abuse cocaine patient counseled Tobacco abuse Questionable alcohol abuse Hypertension Hyperlipidemia Diabetes mellitus History of hep C History of PTSD DVT prophylaxis patient will be on heparin drip Plan: Healthy heart diabetic diet Started on aspirin, oxygen, morphine, heparin drip Appreciate Cardiology consultation, did not recommend heart catheter, recommended medical management with nitroglycerin, diltiazem, statin, lisinopril was on hold due to CAROL will resume at a lower dose since blood pressure is controlled now, no beta marcel due to cocaine recent use. We'll continue medical management, change nitroglycerin to Imdur Patient extensively counseled about tobacco 1 cocaine abstinence Accu-Chek, ISS, hold metformin, diabetic education, check A1c. [place] protocol Discharge Planning Discharge patient to home Condition on discharge: Improved Healthy heart diabetic diet Ad Bibi activity Rx written: See med rec Follow-up with primary care physician, and cardiology as directed Judit Simmons MD Jun 21, 2016 11:53
--- NOTE | 2016-06-21 11:54 | HHI.DS ---
Discharge Summary Admission Date Jun 19, 2016 at 06:30 Discharge Date: Jun 21, 2016 Admitting Diagnosis chest pain, elevated troponin (1) Cocaine abuse ICD Code: F14.10 (2) Non-STEMI (non-ST elevated myocardial infarction) ICD Code: I21.4 (3) PTSD (post-traumatic stress disorder) ICD Code: F43.10 Procedures none] Brief History - From Admission 61 years old male with history of coronary artery disease and heart stenting, hypertension, hyperlipidemia, diabetes mellitus, came to ED complaining of chest pain 6-7 out of 10, along with sweating, short of breath, lightheadedness, patient denied nausea or vomiting, transfer the pain, he did not try nitroglycerin, no transfer or alleviating or exacerbating factor. Patient admitted doing cocaine yesterday. He stated he drinks alcohol daily at least a beer. And he smoked 5 cigarettes a day. Patient denied any abdominal pain, diarrhea or constipation, orthopnea or PND or leg swelling, dysuria urgency or frequency, headache or blurred vision CBC/BMP: 06/21/16 0535 06/20/16 0741 Significant Findings Laboratory Tests Test 06/18/16 06/19/16 06/19/16 06/19/16 22:05 04:20 10:05 19:00 Neutrophils (%) (Auto) 76.3 % (16.0-70.0) Carbon Dioxide Level 18.8 MEQ/L (21.0-32.0) Anion Gap 18 MEQ/L (5-15) Creatinine 1.37 MG/DL (0.60-1.30) Estimat Glomerular Filtration 64 ML/MIN (>89) 74 ML/MIN (>89) Rate Random Glucose 135 MG/DL (74-106) Magnesium Level 1.4 MG/DL (1.5-2.5) Total Creatine Kinase 443 U/L 355 U/L (39-308) (39-308) Creatine Kinase MB 7.3 NG/ML 6.8 NG/ML (0.5-3.6) (0.5-3.6) Troponin I 0.08 NG/ML 0.26 NG/ML 0.34 NG/ML (0.02-0.05) (0.02-0.05) (0.02-0.05) Chloride Level 109 MEQ/L (98-107) Activated Partial 39.0 SEC Thromboplast Time (24.3-30.1) Test 06/20/16 06/20/16 06/21/16 01:18 07:41 05:35 Activated Partial 43.5 SEC 44.8 SEC 39.5 SEC Thromboplast Time (24.3-30.1) (24.3-30.1) (24.3-30.1) Hemoglobin 12.6 GM/DL 12.2 GM/DL (13.0-17.0) (13.0-17.0) Hematocrit 38.2 % 37.1 % (39.0-51.0) (39.0-51.0) Estimat Glomerular Filtration 69 ML/MIN (>89) Rate Random Glucose 249 MG/DL (74-106) Aspartate Amino Transf 9 U/L (15-37) (AST/SGOT) Alkaline Phosphatase 38 U/L (45-117) Troponin I 0.17 NG/ML (0.02-0.05) Total Protein 6.1 GM/DL (6.4-8.2) Albumin 3.1 GM/DL (3.4-5.0) Cholesterol Level 111 MG/DL (120-200) Red Blood Count 4.36 MIL/MM3 (4.50-5.90) PE at Discharge GENERAL: This is a well-nourished, well-developed patient, in no apparent distress. SKIN: No rashes, warm and dry HEAD: Atraumatic. Normocephalic. EYES: Pupils equal round and reactive. Extraocular motions intact. No scleral icterus. ENT: Nose without bleeding, or drainage, Airway patent. NECK: Trachea midline. Supple CARDIOVASCULAR: Regular rate and rhythm without murmurs, gallops, or rubs. RESPIRATORY: Fair air entry bilaterally. No wheezes, rales, or rhonchi. GASTROINTESTINAL: Abdomen soft, non-tender, nondistended. Positive bowel sounds MUSCULOSKELETAL: Extremities without clubbing, cyanosis, or edema. Pedal pulses appreciated NEUROLOGICAL: Awake and alert. Moves all extremity. Normal speech.no focal neurological deficit Hospital Course 61 years old male came with history of chest pain Non-STEMI, chest pain with increased troponin mostly precipitated I cocaine abuse Increased CK and troponin CAROL with increased creatinine>>resolved Metabolic acidosis mostly due to CAROL>> resolved History of coronary artery disease with stenting in the past Substance abuse cocaine patient counseled Tobacco abuse Questionable alcohol abuse Hypertension Hyperlipidemia Diabetes mellitus History of hep C History of PTSD DVT prophylaxis patient will be on heparin drip Plan: Healthy heart diabetic diet Started on aspirin, oxygen, morphine, heparin drip Appreciate Cardiology consultation, did not recommend heart catheter, recommended medical management with nitroglycerin, diltiazem, statin, lisinopril was on hold due to CAROL will resume at a lower dose since blood pressure is controlled now, no beta marcel due to cocaine recent use. We'll continue medical management, change nitroglycerin to Imdur Patient extensively counseled about tobacco 1 cocaine abstinence Accu-Chek, ISS, hold metformin, diabetic education, check A1c. CIWA protocol Pt Condition on Discharge: Good Discharge Disposition: Discharge Home Discharge Time: <= 30 minutes Discharge Instructions DIET: Follow Instructions for: Heart Healthy Diet, Diabetic Diet Additional Diet Instructions: Avoid cocaine completely Activities you can perform: Weight Bearing as Tarsha New Medications: Atorvastatin (Lipitor) 40 Mg Tab 40 MG PO DAILY HLD #30 TAB Clopidogrel (Plavix) 75 Mg Tab 75 MG PO DAILY CAD #30 TAB Diltiazem CD 24 HR (Cardizem CD 24 HR) 240 Mg Caper 240 MG PO DAILY hypertension #30 CAP Isosorbide Mononitrate ER (Isosorbide Mononitrate ER) 60 Mg Tab 60 MG PO DAILY@07 CAD #30 TAB Lisinopril (Lisinopril) 5 Mg Tab 10 MG PO DAILY hypertension #30 TAB ([Aspirin Chew]) 81 MG CHEW 81 MG PO DAILY CAD #30 TAB.CHEW Continued Medications: Metformin (Metformin) 500 Mg Tab 1000 MG PO BID With a meal Blood Sugar Management #30 Ref 0 TAB Judit Simmons MD Jun 21, 2016 11:54
--- NOTE | 2016-06-21 16:52 | EKG ---
Date Performed: 06/18/2016 Time Performed: 20:32:06 PTAGE: 61 years EKG: SINUS TACHYCARDIA WITH OCCASIONAL VENTRICULAR PREMATURE COMPLEXES BASELINE ARTIFACT POSSIBL E LEFT ATRIAL ENLARGEMENT [-0.1mV P WAVE IN V1/V2] POSSIBLE LEFT VENTRICULAR HYPERTROPHY [VOLTAGE CRI TERIA PLUS LAE OR QRS WIDENING] INFERIOR MYOCARDIAL INFARCTION [40+ ms Q WAVE AND/OR ST/T ABNORMALITY IN II/aVF], OF INDETERMINATE AGE MODERATE T-WAVE ABNORMALITY, CONSIDER LATERAL ISCHEMIA [-0.1+ mV T WAVE IN I/aVL/V5/V6] ABNORMAL ECG NO PREVIOUS TRACING No prior for comparison DOCTOR: Marilyn Gates Interpretating Date/Time 06/21/2016 16:50:48
== END 2016-06-21 10:09 | disposition home or self-care (01) | DRG 281 ==
LOC: NEPE 20:02 → NEDA 23:47 → NEDH 06-19 04:13 → OBSVTOIN 06-19 06:30 → N04B 06-19 14:43
PROVIDERS: ADMIT Hospitalist; ATTEND Hospitalist
DX: I21.4 Non-ST elevation (NSTEMI) myocardial infarction (principal); N17.9 Acute kidney failure, unspecified; E87.2 Acidosis; E11.9 Type 2 diabetes mellitus without complications; I25.10 Atherosclerotic heart disease of native coronary artery without angina pectoris; I10 Essential (primary) hypertension; E78.5 Hyperlipidemia, unspecified; G47.30 Sleep apnea, unspecified; B19.20 Unspecified viral hepatitis C without hepatic coma; F17.210 Nicotine dependence, cigarettes, uncomplicated; F14.10 Cocaine abuse, uncomplicated; F41.9 Anxiety disorder, unspecified; F43.10 Post-traumatic stress disorder, unspecified; Z71.6 Tobacco abuse counseling; Z79.84 Long term (current) use of oral hypoglycemic drugs; Z95.5 Presence of coronary angioplasty implant and graft
CPT/HCPCS: 71010; 80048; 80053; 80061; 82550; 82552; 82948; 83735; 84484; 85025; 85027; 85610; 85730; 93005; 93306; 96361; 96374; 96375; J1644; J1650; J1815; J2060; J2270; J3475; J7040

== ENCOUNTER 2016-07-18 22:38 | Emergency (ER) | payer MEDICARE, OTHER ==
[~2016-07-18] VITALS: Ht 182.9 cm; Wt 103.0 kg
[~2016-07-18 22:38] MED LIST changes: +Aspirin Chew PO; +CARD240C6 PO; +ISOS60TA PO; +LIPI40TA PO; +LISI-519 PO; -METF500 PO; +METF500T PO; +METH750T PO; +PLAV75TA29 PO; -PRIN5TAB PO; -ROBA750T3 PO
[2016-07-18 22:39] VITALS: BP 184/85; PULSE 82; RESP 18; TEMP 98.1; O2SAT 98
[2016-07-19 04:14] VITALS: BP 174/112; PULSE 84; RESP 14; TEMP 97.3; O2SAT 96
[2016-07-19] MEDS ORDERED: ACETAMINOPHEN/HYDROcodone 325 MG/5 MG TAB PO ONE (05:00)
[2016-07-19] MEDS ORDERED: DOXYCYCLINE HYCLATE 100 MG CAP PO ONE (05:00)
[2016-07-19] MEDS ORDERED: cefTRIAXone 250 MG VIAL IM ONE (05:00)
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
[2016-07-19] MEDS ORDERED: ONDANSETRON HCL 4 MG/2 ML VIAL IV PUSH ONE (08:00)
[2016-07-19] MEDS ORDERED: MORPHINE SULFATE 4 MG/ML INJ IV PUSH ONE (08:00)
[2016-07-19] MEDS ORDERED: LIDOCAINE 2% JELLY 30 ML TUBE TOPICAL ONE (08:00)
--- NOTE | 2016-07-19 08:06 | PD ---
Physical Exam Date Seen by Provider: Jul 19, 2016 Time Seen by Provider: 07:58 Narrative The patient is a 61-year-old Afro-[place] male was initially evaluated by the previous physician, Dr. Jones. Please refer to the initial history, physical , diagnostic evaluation, treatment modality plan. The patient was signed out at 7:30 AM with Stahl catheter placement and UA pending. Data Data Last Documented VS Vital Signs Date Time Temp Pulse Resp B/P Pulse Ox O2 Delivery O2 Flow Rate FiO2 07/19/16 04:14 97.3 84 14 174/112 96 Room Air Orders Urinalysis - C+S If Indicated (07/19/16 04:57) Acetamin-Hydrocod 325-5 Mg ([place] 5-325 (07/19/16 05:00) Doxycycline (Vibramycin) (07/19/16 05:00) Gc And Chlamydia Pcr (07/19/16 04:57) Ceftriaxone Inj (Rocephin Inj) (07/19/16 05:00) Complete Blood Count With Diff (07/19/16 07:48) Basic Metabolic Panel (Bmp) (07/19/16 07:48) Ed Poc Ultrasound (07/19/16 ) Urinary Catheter Insert/Apply (07/19/16 07:56) Morphine Inj (Morphine Inj) (07/19/16 08:00) Ondansetron Inj (Zofran Inj) (07/19/16 08:00) Lidocaine 2% Jelly (Xylocaine 2% Jelly) (07/19/16 08:00) Labs Laboratory Tests Test 07/19/16 07/19/16 07:50 08:00 Urine Color YELLOW Urine Turbidity CLEAR Urine pH 5.5 Urine Specific [place] 1.048 Urine Protein 30 mg/dL Urine Glucose (UA) TRACE mg/dL Urine Ketones NEG mg/dL Urine Occult Blood LARGE Urine Nitrite NEG Urine Bilirubin NEG Urine Urobilinogen 8.0 MG/DL Urine Leukocyte Esterase TRACE Urine RBC /hpf Urine WBC 8 /hpf Urine Squamous Epithelial 1 /hpf Cells Urine Calcium Oxalate Crystals OCC /hpf Urine Hyaline Casts 16 /lpf Urine Mucus FEW /lpf Microscopic Urinalysis Comment CULT NOT INDICATED White Blood Count 9.0 TH/MM3 Red Blood Count 4.70 MIL/MM3 Hemoglobin 14.1 GM/DL Hematocrit 40.5 % Mean Corpuscular Volume 86.3 FL Mean Corpuscular Hemoglobin 30.0 PG Mean Corpuscular Hemoglobin 34.8 % Concent Red Cell Distribution Width 14.2 % Platelet Count 339 TH/MM3 Mean Platelet Volume 7.8 FL Neutrophils (%) (Auto) 41.3 % Lymphocytes (%) (Auto) 46.3 % Monocytes (%) (Auto) 6.4 % Eosinophils (%) (Auto) 5.3 % Basophils (%) (Auto) 0.7 % Neutrophils # (Auto) 3.7 TH/MM3 Lymphocytes # (Auto) 4.2 TH/MM3 Monocytes # (Auto) 0.6 TH/MM3 Eosinophils # (Auto) 0.5 TH/MM3 Basophils # (Auto) 0.1 TH/MM3 CBC Comment DIFF FINAL Differential Comment Sodium Level 143 MEQ/L Potassium Level 4.1 MEQ/L Chloride Level 108 MEQ/L Carbon Dioxide Level 27.2 MEQ/L Anion Gap 8 MEQ/L Blood Urea Nitrogen 14 MG/DL Creatinine 1.24 MG/DL Estimat Glomerular Filtration 71 ML/MIN Rate Random Glucose 160 MG/DL Calcium Level 9.3 MG/DL [facility] Medical Record Reviewed: Yes Supervised Visit with DEISY: No Differential Diagnosis Differential diagnosis includes urethral stricture, uncomplicated urinary tract infection, penile shaft fracture, sexual transmitted infection, balanitis, urinary retention, acute renal failure, obstructive uropathy. Narrative Course The patient was initially evaluated by the previous physician, Dr. Jones. Please refer to the initial history, physical, diagnostic evaluation, treatment modality plan. The patient was sent as 7:30 AM laboratory evaluation pending. The patient had significant pain with urination, was only able to urinate approximately 20 mL's of urine that appeared to have hematuria. Therefore, bedside ultrasound was performed, the patient did have a slightly distended bladder, was unable to urinate significant amounts. Therefore, the patient was given lidocaine jelly and a Stahl catheter was placed. CBC, BMP, and UA were sent to lab. Physical examination does reveal the patient has a swollen and significantly tender penis, mostly over the distal aspect. No tenderness or significant swelling of the scrotum. The patient's Stahl catheter had 600 cc of hematuria after insertion, his symptoms did improve. UA reveals gross blood , no significant evidence of underlying UTI. 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 Procedures Procedure Narrative A bedside ultrasound was performed using a curvilinear probe. Patient's bladder was visualized, slightly distended. The patient tolerated the procedure without difficulty and there was no obvious complications. Diagnosis Primary Impression: Hematuria Additional Impression: Urinary retention Referrals: Tre Whitney MD 3 days Patient Instructions: General Instructions Additional Instruction: Follow-up with urology. Medications as directed. Leg bag as directed. Med/Other Pt SpecificInfo: Prescription(s) given Scripts Hydrocodone-Acetaminophen ([place])5-325 mg Tab1 Tab PO Q6H PRN (PAIN) #15 TAB Ref 0 Prov:Austin Hirsch MD 07/19/16 Disposition: 01 DISCHARGE HOME Condition: Stable Austin Hirsch MD Jul 19, 2016 08:06
[2016-07-19 08:29] LABS: BLOOD, URINE LARGE (NEG); CALCIUM OXALATE CRYSTALS,URINE OCC /hpf; GLUCOSE,URINE TRACE mg/dL (NEG); HYALINE CAST, URINE 16 /lpf (RARE); KETONE, URINE NEG (NEG); MUCUS URINE FEW /lpf (OCC); NITRITE,URINE NEG (NEG); PH, URINE 5.5 (5.0-8.5); SQUAMOUS EPITHELIAL CELL URINE 1 /hpf (0-5); URINE COLOR YELLOW (YELLW/STRAW)
[2016-07-19 08:30] LABS: COMMENT (UR) CULT NOT INDICATED; CULTURE IF INDICATED CULT NOT INDICATED
[2016-07-19 08:32] LABS: AUTOMATED NEUTROPHIL # 3.7 TH/MM3 (1.8-7.7); BASOPHIL # 0.1 TH/MM3 (0-0.2); BASOPHIL % 0.7 % (0.0-2.0); EOSINOPHIL # 0.5 TH/MM3 (0-0.4); EOSINOPHIL % 5.3 % (0.0-4.0); HEMATOCRIT 40.5 % (39.0-51.0); HEMO FLAGS DIFF FINAL; LYMPH % 46.3 % (9.0-44.0); LYMPHOCYTE # 4.2 TH/MM3 (1.0-4.8); MEAN CELL VOLUME 86.3 FL (80.0-100.0); MEAN CORPUSCULAR HGB CONC 34.8 % (32.0-36.0); MONO % 6.4 % (0.0-8.0); NEUT % 41.3 % (16.0-70.0); PLATELET COUNT 339 TH/MM3 (150-450); RED CELL DISTRIBUTION WIDTH 14.2 % (11.6-17.2)
[2016-07-19] MEDS ORDERED: NORC5TAB PO (09:03)
[2016-07-19 09:06] LABS: BICARBONATE 27.2 MEQ/L (21.0-32.0); POTASSIUM 4.1 MEQ/L (3.5-5.1)
[2016-07-19] MEDS ORDERED: KETOROLAC TROMETHAMINE 30 MG/ML (IVP) VIAL IV PUSH ONE (09:30)
[2016-07-19 10:06] VITALS: BP 189/86
[2016-07-20 01:19] LABS: CHLAMYDIA PCR NOT DETECTED (NOT DETECT); NEISSERIA PCR NOT DETECTED (NOT DETECT)
== END 2016-07-19 10:08 | disposition home or self-care (01) ==
LOC: NEPE 22:38
DX: R31.9 Hematuria, unspecified (principal); R33.9 Retention of urine, unspecified; M19.90 Unspecified osteoarthritis, unspecified site; F41.8 Other specified anxiety disorders; I25.2 Old myocardial infarction; I10 Essential (primary) hypertension; K75.9 Inflammatory liver disease, unspecified; Z72.0 Tobacco use; D64.9 Anemia, unspecified
CPT/HCPCS: 51702; 80048; 81001; 85025; 87491; 87591; 96372; 96374; 96375; 99283; J0696; J1885; J2270; J2405

== ENCOUNTER 2016-07-21 06:38 | Emergency (ER) | payer OTHER ==
[~2016-07-21] VITALS: Ht 190.5 cm; Wt 97.0 kg
[~2016-07-21 06:38] MED LIST changes: -METH750T PO; +NORC5TAB PO
[2016-07-21 06:39] VITALS: BP 177/86; PULSE 90; RESP 18; TEMP 98.6; O2SAT 95
[2016-07-21] MEDS ORDERED: MICO1POW14 TOPICAL (07:18)
[2016-07-21] MEDS ORDERED: TRAM50TA PO (07:18)
--- NOTE | 2016-07-21 07:19 | PD ---
HPI Chief Complaint: Pain: Acute or Chronic Time Seen by Provider: 07:11 Travel History International Travel<30 days: No Contact w/Intl Traveler<30days: No Traveled to known affect area: No History of Present Illness HPI Patient is a 61-year-old male who presents to emergency room with complaints of inflammation around the glans of his penis. Patient reports that he had "rough sex" about 4 days ago, reports that he noticed increased swelling to his penis. Patient was seen in the emergency room 2 days ago and a Dahl catheter was placed. Dahl catheter is draining good urine, patient reports pain and swelling around the glans of his penis. Patient with no fevers or chills. patient with no abdominal pain. Patient with no nausea or vomiting.. Patient with no other complaints. Patient reports that he has an appointment with urology tomorrow morning at 10:30. PFSH Past Medical History Anemia: Yes Arthritis: Yes Anxiety: Yes Depression: Yes Cancer: No Cardiovascular Problems: Yes Cirrhosis: No Cerebrovascular Accident: Yes Coronary Artery Disease: Yes Diabetes: Yes Patient Takes Glucophage: Yes (07/20/16) Diminished Hearing: No Endocrine: Yes Genitourinary: No Hepatitis: Yes (C) Hypertension: Yes Musculoskeletal: Yes Neurologic: Yes Psychiatric: Yes Reproductive: No Respiratory: Yes Myocardial Infarction: No Seizures: No Sleep Apnea: Yes Ulcer: No Tetanus Vaccination: > 5 Years Influenza Vaccination: No Past Surgical History Cholecystectomy: Yes Coronary Stent: Yes (x2) Tonsillectomy: Yes Other Surgery: Yes (tonsils, gallbladder) Family History Family History: Negative Social History Alcohol Use: Yes (RARELY) Tobacco Use: Yes (5 CIGS/DAY) Substance Use: No Allergies-Medications (Allergen,Severity, Reaction): Coded Allergies: No Known Allergies (Unverified , 07/18/16) Reported Meds & Prescriptions Reported Meds & Active Scripts Active Tramadol (Tramadol HCl) 50 Mg Tab 50 Mg PO Q6H PRN Miconazole Topical (Miconazole) 2 % Pow 1 Applic TOPICAL BID 10 Days [place] (Hydrocodone-Acetaminophen) 5-325 mg Tab 1 Tab PO Q6H PRN Lisinopril 5 Mg Tab 10 Mg PO DAILY Isosorbide Mononitrate ER (Isosorbide Mononitrate) 60 Mg Tab 60 Mg PO DAILY@07 Cardizem CD 24 HR (Diltiazem CD 24 HR) 240 Mg Caper 240 Mg PO DAILY Plavix (Clopidogrel Bisulfate) 75 Mg Tab 75 Mg PO DAILY Lipitor (Atorvastatin Calcium) 40 Mg Tab 40 Mg PO DAILY [Aspirin Chew] 81 MG Chew 81 Mg PO DAILY Reported Metformin (Metformin HCl) 500 Mg Tab 1,000 Mg PO BID With a meal Lisinopril 5 Mg Tab 40 Mg PO DAILY Review of Systems General / Constitutional: No: Fever Eyes: No: Visual changes HENT: No: Headaches Cardiovascular: No: Chest Pain or Discomfort Respiratory: No: Shortness of Breath Gastrointestinal: No: Abdominal Pain Genitourinary: No: Dysuria Musculoskeletal: No: Pain Skin: Positive Rash (swelling to the glans of his penis) Neurologic: No: Weakness Psychiatric: No: Depression Endocrine: No: Polydipsia Hematologic/Lymphatic: No: Easy Bruising Physical Exam Narrative GENERAL: No acute distress, nontoxic SKIN: Warm and dry. HEAD: Atraumatic. Normocephalic. EYES: Pupils equal and round. No scleral icterus. No injection or drainage. ENT: No nasal bleeding or discharge. Mucous membranes pink and moist. NECK: Trachea midline. No JVD. CARDIOVASCULAR: Regular rate and rhythm. No murmur appreciated. RESPIRATORY: No accessory muscle use. Clear to auscultation. Breath sounds equal bilaterally. GASTROINTESTINAL: Abdomen soft, non-tender, nondistended. Hepatic and splenic margins not palpable. : Patient with Dahl catheter draining clear yellow urine. No signs of obstruction. Patient with a circumcised phallus, patient with inflammation and swelling around the glans penis. There is no penile discharge. Exam performed with RN at bedside. MUSCULOSKELETAL: No obvious deformities. No clubbing. No cyanosis. No edema. NEUROLOGICAL: Awake and alert. No obvious cranial nerve deficits. Motor grossly within normal limits. Normal speech. PSYCHIATRIC: Appropriate mood and affect; insight and judgment normal. Data Data Last Documented VS Vital Signs Date Time Temp Pulse Resp B/P Pulse Ox O2 Delivery O2 Flow Rate FiO2 07/21/16 06:39 98.6 90 18 177/86 95 Orders Oxycodone-Acetamin 5-325 Mg (Percocet (07/21/16 07:30) MDM Medical Decision Making Medical Screen Exam Complete: Yes Emergency Medical Condition: Yes Interpretation(s) Vital Signs Date Time Temp Pulse Resp B/P Pulse Ox O2 Delivery O2 Flow Rate FiO2 07/21/16 06:39 98.6 90 18 177/86 95 Differential Diagnosis Balanitis, urethritis, uti Narrative Course Patient is a 61-year-old male who presents to emergency room with complaints of pain and swelling to the glans of his penis. Patient reports that injury to his penis occurred 4 days ago during intercourse. Patient was seen in the emergency room 2 days ago and a Dahl catheter was placed secondary to swelling. This dahl catheter is currently draining clear yellow urine and there are no signs of obstruction at this time. Patient complaining of increased swelling and inflammation around the glans of his penis. Exam was performed with RN at bedside. Patient has a circumcised phallus with what appears to be inflammation around the glans of his penis. Patient with balantis , will start patient on antifungal cream. Patient will follow-up with his urologist tomorrow as scheduled. Diagnosis Primary Impression: Balanitis Patient Instructions: Narcotic given in the ED, General Instructions Additional Instructions: Please follow up with urologist tomorrow as scheduled Return to emergency room as needed Med/Other Pt SpecificInfo: Prescription(s) given Scripts Tramadol 50 Mg Tab50 Mg PO Q6H PRN (PAIN) #12 TAB Ref 0 Prov:Sena Ortiz DO 07/21/16 Miconazole Topical 2 % Pow1 Applic TOPICAL BID 10 Days Ref 0 Prov:Sena Ortiz DO 07/21/16 Disposition: 01 DISCHARGE HOME Condition: Stable Sena Ortiz DO Jul 21, 2016 07:19
[2016-07-21] MEDS ORDERED: oxyCODONE/ACETAMINOPHEN 5 MG/325 MG TAB PO ONE (07:30)
== END 2016-07-21 07:53 | disposition home or self-care (01) ==
LOC: NEPE 06:38
DX: N48.1 Balanitis (principal); I10 Essential (primary) hypertension; K75.9 Inflammatory liver disease, unspecified; E11.9 Type 2 diabetes mellitus without complications; I25.10 Atherosclerotic heart disease of native coronary artery without angina pectoris; D64.9 Anemia, unspecified; F41.8 Other specified anxiety disorders; M19.90 Unspecified osteoarthritis, unspecified site; Z79.4 Long term (current) use of insulin; Z86.73 Personal history of transient ischemic attack (TIA), and cerebral infarction without residual deficits; Z72.0 Tobacco use
CPT/HCPCS: 99283